=== PATIENT | female | born 1995 | race Caucasian/White ===

== ENCOUNTER 2017-03-31 07:05 | Inpatient (IN) | payer BC, OTHER ==
[2017-03-31] MEDS ORDERED: DEXTROSE 5%-LACTATED RINGERS 1,000 ML IV SCH (07:15)
[2017-03-31] MEDS ORDERED: DINOPROSTONE 10 MG VAGINAL SUPPOSITORY VG ONE (07:15)
[2017-03-31 09:07] LABS: BASO % 0.3 % (0-2.0); EOS % 1.3 % (0-4.5); MCH 31.3 pg (25.7-33.7); MCHC 33.5 g/dl (32.0-36.0); MEAN CELL VOLUME 93.4 fl (80-96); MEAN PLT VOLUME 9.7 fl (7.5-11.1); NEUT % 57.2 % (42.8-82.8); PLATELET COUNT 177 K/MM3 (134-434); RDW 13.8 % (11.6-15.6); WHITE BLOOD COUNT 6.4 K/mm3 (4.0-10.0)
[2017-03-31 09:28] LABS: ANION GAP 9 (8-16); CALCIUM 8.3 mg/dL (8.5-10.1); CO2 24 mmol/L (21-32); CREATININE 0.5 mg/dL (0.55-1.02); GLUCOSE,RANDOM 85 mg/dL (74-106)
[2017-03-31] MEDS ORDERED: TUBERCULIN PPD 5 TU/0.1ML SYRINGE (IN PATIENT USE ONLY) ID ONE (10:00)
[2017-03-31] MEDS ORDERED: OXYTOCIN 15 UNITS/ LR 250 ML 15 UNIT/250 ML INFUS.BAG IVPB ONE (10:03)
[2017-03-31 11:14] VITALS: BMI 30.9
[2017-03-31] MEDS ORDERED: OXYTOCIN 15 UNITS/ LR 250 ML 15 UNIT/250 ML INFUS.BAG IVPB SCH (11:15)
[2017-03-31 13:04] LABS: INR 0.96 (0.82-1.09); PROTHROMBIN TIME (PATIENT) 10.8 SEC (9.98-11.88)
[2017-03-31 13:06] LABS: ACTIVATED PTT 26.1 SECONDS (26.9-34.4)
[2017-03-31 13:19] LABS: HIV 1 & 2 AB NEGATIVE; HIV 1 AGp24 NEGATIVE
--- NOTE | 2017-03-31 18:57 | HP ---
Past Medical History - Primary Care Physician PCP:: Soumya Smith - Admission Chief Complaint: Elective Section. Demise History of Present Illness: 21 yo admitted for elective induction History Source: Patient Limitations to Obtaining History: No Limitations - Past Medical History ...: 2 ...Para: 1 ...Term: 1 ...LMP: 06/21/16 ... Weeks Gestation by Dates: 39.4 ...EDC by Dates: 04/03/17 ...EDC by Sono: 04/03/17 - Past Surgical History Past Surgical History: Yes: None Hx Myomectomy: No Hx Transabdominal Cerclage: No - Smoking History Smoking history: Never smoked Aproximately how many cigarettes per day: 0 - Alcohol/Substance Use Hx Alcohol Use: No - Social History Usual Living Arrangement: Yes: With Spouse History of Recent Travel: No Home Medications - Allergies Allergies/Adverse Reactions: Allergies Allergy/AdvReac Type Severity Reaction Status Date / Time No Known Allergies Allergy Verified 01/23/15 02:28 - Home Medications Home Medications: Ambulatory Orders Ibuprofen [Motrin -] 600 mg PO QID PRN #28 tablet 03/31/17 Vitamins (Sjr) - 1 tab PO DAILY 03/31/17 Review of Systems - Review of Systems Constitutional: reports: No Symptoms Eyes: reports: No Symptoms HENT: reports: No Symptoms Neck: reports: No Symptoms Cardiovascular: reports: No Symptoms Respiratory: reports: No Symptoms Gastrointestinal: reports: No Symptoms Genitourinary: reports: No Symptoms Breasts: reports: No Symptoms Reported Musculoskeletal: reports: No Symptoms Integumentary: reports: No Symptoms Neurological: reports: No Symptoms Endocrine: reports: No Symptoms Hematology/Lymphatic: reports: No Symptoms Psychiatric: reports: No Symptoms Physical Exam - Maternity Vital Signs: Vital Signs Temperature 98.6 F 03/31/17 18:00 Pulse Rate 71 03/31/17 18:00 Respiratory Rate 20 03/31/17 18:00 Blood Pressure 126/75 03/31/17 18:00 O2 Sat by Pulse Oximetry (%) Constitutional: Yes: Well Nourished, No Distress Neck: Yes: WNL Cardiovascular: Yes: WNL, Regular Rate and Rhythm Lungs: Clear to auscultation Breast(s): Yes: WNL - Abdominal Exam/OB Fundal Height: 40 Number of Fetuses: Single Presentation: Vertex Contractions: Yes Regularity: Irregular Category: I - Vaginal Exam/OB Dilatation (cm): 2-3 Effacement (%): 50 Amniotic Membrane Status: Intact Presentation: Vertex/Position - Physical Exam Musculoskeletal: Yes: WNL Extremities: Yes: WNL Edema: No Psychiatric: Yes: WNL, Alert, Oriented - Labs Lab Results: CBC, BMP 03/31/17 08:55 03/31/17 08:55 Hemorrhage Risk Assessment - Risk Factors Risk Score: 0 Risk Level: Low Risk Problem List - Problems (1) Elective induction of labor planned Assessment/Plan: Elective induction 21 yo with routine care Cat 1 Plan Elective induction for pitocin Code(s): CEW7519 - Assessment/Plan iup at 38.4 week elective induction Plan Pitocin induction
--- NOTE | 2017-03-31 18:59 | PN ---
Ante-Partal Exam - Subjective Subjective: Pt doing well found sitting in chair Pt on ptiocin Vital Signs: Vital Signs Temperature 97.8 F 03/31/17 18:56 Pulse Rate 72 03/31/17 18:56 Respiratory Rate 20 03/31/17 18:56 Blood Pressure 133/78 03/31/17 18:56 O2 Sat by Pulse Oximetry (%) Bleeding: No Headache: No Visual changes: No Right upper quadrant pain: No - Contractions Contractions: Yes Regularity: Regular - Exam during Labor Variability: Moderate Category: I Monitor Decelerations: None Exam: Vaginal Amniotic Membrane Status: Ruptured Amniotic Fluid: Clear Presentation: Vertex Station: -1 - Intrapartum Hemorrhage Risk Risk Score: 0 Risk Level: Low Risk - Assessment/Plan Assessment/Plan: IUP at 39.4 week elective induction Plan continue pitocin
[2017-03-31] MEDS ORDERED: FENTANYL/BUPIVACAINE/NS/PF - PCEA - 50 ML DISP.SYRIN EP ONE (19:21)
[2017-03-31] MEDS ORDERED: FENTANYL/BUPIVACAINE/NS/PF - PCEA - 50 ML DISP.SYRIN EP SCH (20:00)
[2017-03-31] MEDS ORDERED: OXYTOCIN 20 UNITS in 0.9% NS 20 UNIT/1,000 ML INFUS.BAG IV ONE (20:19)
--- NOTE | 2017-03-31 22:12 | PN ---
Delivery - Delivery Vaginal Delivery: No Problems Type of Anesthesia: Epidural Episiotomy/Laceration: 1st degree EBL (cc): 500 Delivery, Single - Stages of Labor Placenta: Yes: Spontaneous - Condition of Infant Gender: Male Position: OA - Victor Feeding Plan Initial Plan: Exclusive throughout hospitalization
[2017-03-31] MEDS ORDERED: BISACODYL 10 MG SUPP.RECT PR PRN (22:13)
[2017-03-31] MEDS ORDERED: BENZOCAINE 28 GM HEMORRHOIDAL OINTMENT PR PRN (22:13)
[2017-03-31] MEDS ORDERED: BENZOCAINE 20% 57 GM BOTTLE TP PRN (22:13)
[2017-03-31] MEDS ORDERED: METHYLERGONOVINE MALEATE 0.2 MG/1 ML AMP IM PRN (22:13)
[2017-03-31] MEDS ORDERED: WITCH HAZEL 50% (TUCKS) 40 PAD/JAR PAD TP PRN (22:13)
[2017-03-31] MEDS ORDERED: OXYTOCIN 20 UNITS in 0.9% NS 20 UNIT/1,000 ML INFUS.BAG IV SCH (22:15)
[2017-04-01] MEDS: IBUPROFEN 600 MG TABLET (FP) PO PRN ×3 (01:27→17:08)
[2017-04-01] MEDS: ACETAMINOPHEN 325 MG TABLET (FP) PO PRN ×3 (01:27→17:09)
[2017-04-01] MEDS ORDERED: LIDOCAINE HCL 1% PRESERVATIVE FREE - 30ML VIAL ONE (05:52)
[2017-04-01] MEDS ORDERED: OXYTOCIN 20 UNITS in 0.9% NS 20 UNIT/1,000 ML INFUS.BAG IV ONE (05:52)
[2017-04-01] MEDS ORDERED: DIPHTH,PERTUSS(ACELL),TET 0.5 ML DISP.SYRIN IM ONE (10:00)
--- NOTE | 2017-04-01 10:24 | PN ---
Post Progress Note - Subjective Subjective: Pt seen/evaluated and doing well. Pain controlled, tolerating diet, voiding, ambulating. Denies CP/SOB/F/C/JASSO. VB/lochia moderate and decreasing. No other complaints. Type of Delivery: Vital Signs: Vital Signs Temperature 99.0 F 04/01/17 08:00 Pulse Rate 72 04/01/17 08:00 Respiratory Rate 18 04/01/17 08:00 Blood Pressure 126/59 04/01/17 08:00 O2 Sat by Pulse Oximetry (%) 100 03/31/17 22:00 Uterus: Yes: Fundus Firm, Fundus below umbilicus Abdomen/GI: Yes: Abdomen soft, Passing flatus, Tolerating PO. No: Tender Lochia: Yes: Rubra Lochia, amount: Small Extremities: Yes: Calves non-tender. No: Edema Perineum: Yes: Laceration (1st degree) Activity: Ambulating - Labs Labs: CBC WBC 6.4 K/mm3 (4.0-10.0) 03/31/17 08:55 RBC 4.42 M/mm3 (3.60-5.2) 03/31/17 08:55 Hgb 13.8 GM/dL (10.7-15.3) 03/31/17 08:55 Hct 41.3 % (32.4-45.2) 03/31/17 08:55 MCV 93.4 fl (80-96) 03/31/17 08:55 MCH 31.3 pg (25.7-33.7) 03/31/17 08:55 MCHC 33.5 g/dl (32.0-36.0) 03/31/17 08:55 RDW 13.8 % (11.6-15.6) 03/31/17 08:55 Plt Count 177 K/MM3 (134-434) D 03/31/17 08:55 MPV 9.7 fl (7.5-11.1) D 03/31/17 08:55 Neutrophils % 57.2 % (42.8-82.8) D 03/31/17 08:55 Lymphocytes % 34.6 % (8-40) D 03/31/17 08:55 Monocytes % 6.6 % (3.8-10.2) 03/31/17 08:55 Eosinophils % 1.3 % (0-4.5) 03/31/17 08:55 Basophils % 0.3 % (0-2.0) 03/31/17 08:55 Problem List - Problems (1) Vaginal delivery Code(s): O80 - ENCOUNTER FOR FULL-TERM UNCOMPLICATED DELIVERY Assessment/Plan 21 y/o PPD#1 s/p normal , doing well encourage ambulation PO pain meds regular diet await CBC
[2017-04-01 10:57] LABS: BASO % 0.1 % (0-2.0); EOS % 0.4 % (0-4.5); MCHC 33.7 g/dl (32.0-36.0); MEAN CELL VOLUME 92.1 fl (80-96); MEAN PLT VOLUME 9.4 fl (7.5-11.1); NEUT % 75.4 % (42.8-82.8); PLATELET COUNT 156 K/MM3 (134-434); RDW 13.4 % (11.6-15.6); WHITE BLOOD COUNT 11.9 K/mm3 (4.0-10.0)
[2017-04-02] MEDS: IBUPROFEN 600 MG TABLET (FP) PO PRN ×2 (04:19→12:43)
[2017-04-02] MEDS: ACETAMINOPHEN 325 MG TABLET (FP) PO PRN (04:20)
--- NOTE | 2017-04-02 08:00 | DS ---
Physical Exam-NIGHTMAN Vital Signs: Vital Signs Temperature 98.1 F 04/01/17 22:00 Pulse Rate 80 04/01/17 22:00 Respiratory Rate 18 04/01/17 22:00 Blood Pressure 120/66 04/01/17 22:00 O2 Sat by Pulse Oximetry (%) 100 03/31/17 22:00 Labs: CBC, BMP 04/01/17 10:49 03/31/17 08:55 Delivery - Delivery Vaginal Delivery: No Problems Type of Anesthesia: Epidural Episiotomy/Laceration: 1st degree EBL (cc): 300 Delivery, Single - Stages of Labor Date 1st Stage Initiatied: 03/31/17 Time 1st Stage Initiated: 19:30 Date 2nd Stage Initiated: 03/31/17 Time 2nd Stage Initiated: 20:35 Date of Delivery: 03/31/17 Time of Delivery: 22:01 Time Placenta Delivered: 22:06 Placenta: Yes: Spontaneous - Condition of [employer] St[employer] Present: No Infant Gender: Male Weight: 7 lb 3 oz Position: Left, OA Total Hours ROM (Hrs/Mins): 1 HOUR/ 31 MINUTES - 1 Minute Total Score: 9 5 Minutes Total Score: 10 - Feeding Plan Initial Plan: Exclusive throughout hospitalization Discharge Summary Reason For Visit: INDUCTION OF LABOR Current Active Problems Elective induction of labor planned (Acute) Vaginal delivery (Acute) Procedures: Principal: Normal Hospital Course: Pt admitted to L&D on 03/31/17 for elective labor induction. Underwent uncomplicated induction and normal of baby boy on 03/31/17. Pt had uncomplicated post course and was discharged home in stable condition on post day 2. Condition: Good - Instructions Diet, Activity, Other Instructions: Physical activity Resume your normal everyday activity as tolerated no heavy lifting or exercise until seen by your surgeon. You may walk unlimited florecita of and climb stairs. You may resume driving the car when you feel safe and comfortable behind the wheel. No sexual activity as instructed. Wound care If you have a bandage, leave it on, and keep dry for 48-72 hours. After that time discard the outer bandage. If they are tapes on the skin under the out of bandage leave them in place. They will peel off in the next 7 to 10 days. Do Not Peel them off. You may shower the day after surgery. If there are tapes present on the skin, you may shower over them. Diet There are no dietary restrictions. Eat healthy, high-fiber foods. Drink 6 to 8 glasses of liquid each day. This will assist in keeping your bowels are regular. Pain management You may take Tylenol or acetaminophen or Ibuprofen (for example, Motrin, Advil etc.) from my pain prescription medication is ordered should be taken as prescribed for moderate to severe pain. Call MD for any of the following: Severe pain not relieved by medication Fever of 101 or higher Excessive bleeding or drainage on dressing Inability to urinate Referrals: Soumya Smith MD [Staff Physician] - Disposition: HOME - Home Medications Comprehensive Discharge Medication List: Ambulatory Orders Ibuprofen [Motrin -] 600 mg PO QID PRN #28 tablet 03/31/17 Vitamins (Sjr) - 1 tab PO DAILY 03/31/17
[2017-04-02 08:09] VITALS: BP 127/65; PULSE 68; TEMP 98.5
== END 2017-04-02 14:45 | disposition home or self-care (01) | DRG 775 ==
LOC: JLDR 07:05 → J3W 04-01
PROVIDERS: ADMIT Obstetrics & Gynecology; ATTEND Obstetrics & Gynecology
PROC: 10E0XZZ Delivery of Products of Conception, External Approach (ICD-10-PCS; principal; 2017-03-31)
PROC: 0HQ9XZZ Repair Perineum Skin, External Approach (ICD-10-PCS; 2017-03-31)
DX: O70.0 First degree perineal laceration during delivery (principal); Z3A.39 39 weeks gestation of pregnancy; Z37.0 Single live birth
CPT/HCPCS: 36415; 59409; 80048; 85025; 85610; 85730; 86593; 86850; 86900; 86901; 87389; 90715